=== PATIENT | male | born 1985 | race Caucasian/White ===

== ENCOUNTER 2024-07-16 04:04 | Day surgery (SDC) | payer OTHER ==
[2024-07-16] VITALS (224 sets, daily range): BP systolic 82–126; BP diastolic 51–105
[~2024-07-16] VITALS: Ht 172.7 cm; Wt 72.7 kg
--- NOTE | 2024-07-16 07:00 | NUR ---
Patient arrived to the ANR suite, identification and demographics confirmed. Patient to room 9, AAO, ambulatory, vitals obtained, ID/allergy/fall bands placed, changed into hospital gown, BRITTANY hose, and non-slip socks. Procedure and timeline explained for treatment and discharge. All questions answered and the patient presents no concerns at this time.
[2024-07-16] MEDS ORDERED: SCOPOLAMINE 1.5 MG DIS TD PRN (07:30)
[2024-07-16] MEDS ORDERED: FAMOTIDINE 20 MG/TAB PO PRN (07:30)
[2024-07-16] MEDS ORDERED: cloNIDine HCL 0.1 MG/TAB PO PRN (07:30)
[2024-07-16] MEDS ORDERED: PANTOPRAZOLE SODIUM Sesquihydr 40 MG/TAB PO PRN (07:30)
[2024-07-16] MEDS ORDERED: ALBUTEROL SULFATE 2.5 MG VIAL IN PRN (07:30)
[2024-07-16] MEDS ORDERED: diazePAM 5 MG/TAB PO PRN ×2 (07:30→08:30)
[2024-07-16] MEDS ORDERED: CYANOCOBALAMIN 500 MCG/TAB ( B12) PO PRN (07:30)
[2024-07-16] MEDS ORDERED: LACTATED RINGER'S 1,000 ML IV PRN ×3 (07:30→19:00)
--- NOTE | 2024-07-16 07:41 | NUR ---
Dr. Gomez telephoned with patient intake information including usage, dose, last dose/time taken and initial vital signs. Patient history and allergies reviewed with MD. Orders received for 10 mg PO Valium and 0.1 mg PO Clonidine now. Will reassess per protocol in 1.5 hours and update MD with assessment and vitals.
--- NOTE | 2024-07-16 07:58 | NUR ---
NOT ABLE TO OBTAIN IV SITE AT THIS TIME DUE TO PAST IV DRUG USE. NOTIFIED DR. GOMEZ AT THIS TIME AND CONSENT OBTAINED FOR CENTRAL LINE PLACEMENT.
[2024-07-16] MEDS ORDERED: ASCORBIC ACID 4,000 MG in SODIUM CHLORIDE 0.9% 1,000 ML IV SCH (08:00)
[2024-07-16 09:06] LABS: BASO% 0.6 % (0-3); EOS% 1.6 % (0-8); HEMATOCRIT 42.5 % (39.0-50.0); HEMOGLOBIN 13.2 g/dl (14.0-18.0); LYMPH% 40.6 % (15-41); MEAN CELL VOLUME 93.6 fL CALC (80.0-100.0); MEAN CORPUSCULAR HGB 29.1 pG CALC (26.0-32.0); MEAN CORPUSCULAR HGB CONC 31.1 g/dL CAL (32.0-36.0); MONO% 7.2 % (2-13); NEUT# 2.49 thou/uL (1.82-7.42); RED BLOOD COUNT 4.54 mill/uL (4.70-6.10); RED CELL DISTRI WIDTH 11.9 % (11.5-15.5)
[2024-07-16 09:24] LABS: ALBUMIN 4.1 g/dL (3.2-5.0); BILIRUBIN, TOTAL 0.4 mg/dL (0.2-1.3); CREATININE 0.7 mg/dL (0.7-1.3); POTASSIUM 4.5 mmol/l (3.5-5.1); TOTAL PROTEIN 7.3 g/dL (6.3-8.2)
[2024-07-16] MEDS ORDERED: ONDANSETRON HCl 4 MG/2 ML SDV IV PRN ×3 (09:35→19:00)
[2024-07-16] MEDS ORDERED: LIDOCAINE HCL 1% (10MG/ML) 100 MG/10 ML MDV IV PRN (09:35)
[2024-07-16] MEDS ORDERED: cloNIDine HYDROCHLORIDE 100 MCG/ML 10 ML INJ IV PRN (09:35)
[2024-07-16] MEDS ORDERED: POTASSIUM CHLORIDE 10 MEQ/50 ML BAG IV PRN (09:35)
[2024-07-16] MEDS ORDERED: MIDAZOLAM HCL 2 MG/2 ML VIAL IV PRN (09:35)
[2024-07-16] MEDS ORDERED: diazePAM 5 MG/TAB VT PRN (09:35)
[2024-07-16] MEDS ORDERED: STERILE WATER FOR IRRIGATION 1,000 ML BTL IR PRN (09:35)
[2024-07-16] MEDS ORDERED: ROCURONIUM BROMIDE 10 MG/ML 5ML VIAL IV PRN (09:35)
[2024-07-16] MEDS ORDERED: SUCCINYLCHOLINE CHLORIDE 20 MG/ML 10ML VIAL IV PRN (09:35)
[2024-07-16] MEDS ORDERED: LIDOCAINE HCL 1% (10MG/ML) 100 MG/10 ML MDV VT PRN ×2 (09:35)
[2024-07-16] MEDS ORDERED: OCTREOTIDE ACETATE 100 MCG/VIAL SDV SC PRN (09:35)
[2024-07-16] MEDS ORDERED: PROPOFOL 100 ML IV PRN (09:35)
[2024-07-16] MEDS ORDERED: DEXAMETHASONE SODIUM PHOSPHATE PF 10 MG/ML SDV IV PRN ×2 (09:35→19:00)
[2024-07-16] MEDS ORDERED: THIAMINE HCL 100 MG/ML 2ML VIAL IV PRN (09:35)
[2024-07-16] MEDS ORDERED: cloNIDine HCL 0.1 MG/TAB VT PRN (09:35)
[2024-07-16] MEDS ORDERED: MAGNESIUM SULFATE HEPTAHYDRATE 100 ML IV PRN (09:35)
[2024-07-16] MEDS ORDERED: NALTREXONE HCL 50 MG/TAB VT PRN (09:35)
[2024-07-16] MEDS ORDERED: PROPOFOL 10 MG/ML 100ML VIAL IV PRN (09:35)
[2024-07-16] MEDS ORDERED: DiphenhydrAMINE HCL 50 MG/ML SDV IV PRN (09:35)
--- NOTE | 2024-07-16 10:20 | NUR ---
DR. GOMEZ AT BEDSIDE TO ASSESS PT AND DISCUSS POC AND PROCEDURE.
--- NOTE | 2024-07-16 10:26 | NUR ---
Induction Note Patient to ANR procedure room. Time out performed at 1026. Patient placed on monitors, Sav hugger, bilateral wrist restraints applied for ET tube protection. Versed 5mg given IV push at 1027. Lidocaine 100mg given at 1033 IV push followed by Rocoronium 10mg at 1034 IV push and held for 90 seconds. Propofol bolus of 120mg given at 1036 IV push. Succinylcholine 80mg given IV push at 1037. Smooth intubation with 7.5 ETT. Positive CO2. Positive Auscultation for air exchange. ET tube secured with tube gotti 22 at the lip. Patient placed on ventilator for spontaneous ventilation. Placed on Propofol IV drip at 1038. OG inserted. Positive air on auscultation. Positive gastric content. Stomach washed at this time.
--- NOTE | 2024-07-16 10:50 | NUR ---
OG close note Stomach washed at this time. Naltrexone 50 mg via OG tube. OG will be clamped for 45 minutes.
--- NOTE | 2024-07-16 11:35 | NUR ---
OG open note OG open at this time. Gastric content draining into drainage bag. OG to drain for 45 minutes. Propofol will be titrated down based on patient.
--- NOTE | 2024-07-16 12:20 | NUR ---
OG close note Stomach washed at this time. Naltrexone 50 mg with Clonidine 0.2 mg via OG tube. OG will be clamped for 45 minutes.
--- NOTE | 2024-07-16 13:50 | NUR ---
OG close note Stomach washed at this time. Naltrexone 50 mg with Clonidine 0.2 mg via OG tube. OG will be clamped for 45 minutes.
[2024-07-16] MEDS ORDERED: NALTREXONE50 MG PO (15:04)
[2024-07-16] MEDS ORDERED: CLONIDINE0.1 MG PO (15:04)
[2024-07-16] MEDS ORDERED: KLONOPIN2 MG PO (15:04)
--- NOTE | 2024-07-16 15:20 | NUR ---
No OG close at this time. Patient minimally reacting to treatment. Vitals, total Naltrexone & Clonidine, current Propofol infusion rate, treatment duration, and patient assessment discussed with Dr. Gomez. No orders for medication administration at this time. OG will remain open to allow time for patient to continue reacting to therapy.
--- NOTE | 2024-07-16 16:20 | NUR ---
OG close note Stomach washed at this time. Naltrexone 25 mg, Valium 10mg, and Clonidine 0.2 mg via OG tube. OG will be clamped for 20-30 minutes for closing dose.
[2024-07-16] MEDS ORDERED: Pantoprazole Sodium 40 MG VIAL (Protonix) IV SCH (16:30)
--- NOTE | 2024-07-16 16:40 | NUR ---
ALL PT PERSONAL BELONGINGS STORED IN LOCKER PURPLE #1 IN ANR DEPARTMENT.
--- NOTE | 2024-07-16 17:00 | NUR ---
Extubation note Closing medications given Benadryl 50mg IV push, Decadron 10mg IV push,Magnesium 4 grams IV, Zofran 8mg IV push, Octreotide 100mcg SC. Stomach washed out prior to extubation. Suctioned gastric content. OG removed. Patient extubated. Propofol Discontinued. Wrist restraints removed. Sav hugger Removed. See ANR Moderate sedate recovery record for further notes and assessment.
--- NOTE | 2024-07-16 17:20 | NUR ---
PHONE CALL PLACED TO PT MOTHER NIC. UPDATE PROVIDED AT THIS TIME. ALL QUESTIONS AND CONCERNS ADDRESSED.
--- NOTE | 2024-07-16 17:44 | NUR ---
patient arrived to ms bedside report given from rufus, kerri s.s of distress at this time; 2L of 02; breathing unlabored; vitals stable at this time; cecelia hugger applied to patient; personal item in ANR locker; iv site clean and intact running with LR @100; call light within reach, bed in lowest postion; safety measures in place; bed alarm activated at this time;
--- NOTE | 2024-07-16 17:44 | NUR ---
Patient to room 284 in no acute distress. Transfer of care to [facility], bedside report provided. 2L NC placed per orders, IVF to continue at 100ml/hr. VSS. Patient resting comfortably, no adventitious breath sounds appreciated. Bed alarm set. See chart/EMAR for procedural details and assessments. Handoff of care at the time of this note.
[2024-07-16] MEDS ORDERED: PROMETHAZINE HCL 25 MG in SODIUM CHLORIDE 0.9% 50 ML IV PRN (19:00)
[2024-07-16] MEDS ORDERED: KETOROLAC TROMETHAMINE 30 MG/ML SDV IV PRN (19:00)
[2024-07-16] MEDS ORDERED: LORazepam 2 MG/ML IV PRN ×2 (19:00)
[2024-07-16] MEDS ORDERED: PROMETHAZINE HCL 12.5 MG in SODIUM CHLORIDE 0.9% 50 ML IV PRN (19:00)
[2024-07-16] MEDS ORDERED: ACETAMINOPHEN 500 MG TAB PO PRN (19:00)
[2024-07-16] MEDS ORDERED: ACETAMINOPHEN 1,000 MG/100 ML VIAL IV PRN (19:00)
[2024-07-16] MEDS ORDERED: HALOPERIDOL LACTATE 5 MG/ML SDV IV PRN (19:00)
--- NOTE | 2024-07-16 19:34 | NUR ---
Patient was observed trying to get out bed. I went in and asked if he needed something and patient stated that he was about to go home. I then stated to him that he had just had the procedure and he stated that he had wasted his money because he was in pain and "they" told him that he wouldn't. Myself and the other cartographic drafter explained to him that what he was feeling is his body trying to regulate itself and get back to normal and throughout the night the nurse will give him meds to help with that. We also stated that we would let the nurse know how he was feeling to see if she could give him something. Nurse was notified.
--- NOTE | 2024-07-16 19:54 | NUR ---
UTILITY HAND INFORMED STOCKROOM KEEPER OF HOW PT WAS FEELING. PT C/O PAIN THROUGHOUT BODY AND EXPRESSING REGRET PERFORMING PROCEDURE STATING "I FEEL LIKE LUDIN BEEN UP FOR HOURS, I WAS TOLD I WOULD BE PUT TO SLEEP FOR ALL THIS" REMINDED PT THAT PROCEDURE IS COMPLETED AND HE IS NOW IN RECOVERY WHERE HIS BODY WILL REGULATE AND ENCOURAGED RELAXATION AND REST TO HELP RECOVERY. DID ADMINSITER MEDICATION PER EMAR DUE TO PT COMPLAINTS OF PAIN AND AGITATION. PT IS LAYING IN BED SUPINE, RM AIR, IVF RUNNING PER EMAR THROUGH RT FEMORAL LINE. VSS. NO S/S OF DISTRESS. BED ALARM ON AND SAFETY PRECAUTIONS IN PLACE.
--- NOTE | 2024-07-16 20:21 | NUR ---
RELAYED INFORMATION TO PT STATUS AND HOW HE IS FEELING. RECEIVED VERBAL ORDER AND FAXED TO PHARMACY AWAITING VERIFCATION. INFORMED PT OF PHYSICIANS ORDER AND PLAN OF CARE. PT CONTINUES TO HAVE SAME COMPLAINTS AT THIS TIME.
[2024-07-16] MEDS ORDERED: PATIENT' OWN MED CONTROLLED 1 EA DOSE IV PRN (21:00)
[2024-07-16] MEDS ORDERED: HALOPERIDOL LACTATE 5 MG/ML SDV IV SCH ×2 (21:30→23:40)
--- NOTE | 2024-07-16 22:57 | NUR ---
ADMINISTERED SCHEDULED MEDS PER EMAR. PT ASKED "HOW MUCH KLONOPIN" INFORMED OF SCHEDULED DOSE FO 2MG PER PHYSICIANS ORDER PT THEN STATED "THAT'S NOT GOING TO FUCKING DO NAYTHING" ASKED PT IF HE STILL WANTED TO TAKE IT, PT DID W/O DIFFICULTY. DENIES ANY N/V AT THIS TIME BUT CONTINUES TO COMPLAIN ABOUT LEGS AND HEAD STATING HE "CAN'T SLEEP" PT WAS ABLE TO SLEEP AFTER EARLIER DOSE OF HALDOL WAS ADMINSITERED. ENCOURAGED PT TO RELAX AND LET MEDICATION TAKE EFFECT. VSS. NO S/S OF DISTRESS. BED ALARM ON AND SAFETY PRECAUTIONS IN PLACE.
[2024-07-16] MEDS ORDERED: cloNIDine HCL 0.1 MG/TAB PO SCH (23:00)
[2024-07-16] MEDS ORDERED: clonazePAM 1 MG/TAB PO PRN (23:00)
--- NOTE | 2024-07-17 00:08 | NUR ---
PT PUNCHING THE BED RAILS AND KICKING THEM, WHEN TOLD TO STOP PT STATED "IM FUCKING DYING OVER HERE" WHEN INFORMED PT THEY ARE NOT DYING AND TO EXPLAIN WHAT IS WRONG PT C/O SAME CIRCUMSTANCE FORM EARLIER. ADMINISTERED MEDICATION PER EMAR TO HELP PT RELAX AND GET SLEEP. BED ALARM ON AND SAFETY PRECAUTIONS IN PLACE.
--- NOTE | 2024-07-17 00:54 | NUR ---
PT STILL C/O OF RESTLESS LEGS AND BECOMING VERY AGITATED, MAKING COMMENTS SUCH "I KNEW I SHOULDNT HAVE LISTEN TO YOU GUYS JUST LIKE EVERY OTHER FUCKING TIME" AND PT CONTINUES TO EXPRESS REGRET IN DECISION. NO THERAPUTIC COMMUNICATION OR EDUCATION PT WASNTS TO AWKNOWLEDGE AT THIS TIME. DID INFORM OF PT STATUS AND COMPLAINTS. TORB FOR NEW MEDICATIONS, FAXED TO PHARMACY AWAITING VERIFICATION.
[2024-07-17] MEDS ORDERED: MAGNESIUM SULFATE HEPTAHYDRATE 50 ML IV SCH (01:00)
[2024-07-17] MEDS ORDERED: diazePAM 10 MG/2 ML VIAL IV SCH (01:00)
[2024-07-17] MEDS ORDERED: clonazePAM 1 MG/TAB PO PRN ×2 (04:00→08:00)
[2024-07-17] MEDS ORDERED: cloNIDine HCL 0.1 MG/TAB PO PRN (04:00)
[2024-07-17] MEDS ORDERED: NALTREXONE HCL 50 MG/TAB PO SCH ×2 (04:00→09:30)
[2024-07-17 04:43] VITALS: BP 105/66
--- NOTE | 2024-07-17 04:55 | NUR ---
PT HAS BEEN ABLE TO GET A FEW HOURS OF SLEEP AFTER ADMINISTERING MEDICATIONS EARLIER PER EMAR FOR PAIN AND AGITATION. PT WAS AROUSABLE TO SPEECH BUT SOON WAKING UP BEGAN STATING "IS THERE ANYTHING YOU CAN GIVE ME, I HAVEN'T SLEPT AND IM STILL FEELING UNCOMFORTABLE" INFORMED PT THAT THEY HAD BEEN SLEEPING AND THAT MORNING SCHEDULED MEDS WILL BE ADMINSITERED NOW. PT DENIED ANY N/V AT THIS TIME. VSS. STAFF ASSISTED PT TO BATHROOM, AMBULATED WITH STEADY GAIT AND KEPT EYES OPEN. VOIDED BUT DID C/O PAIN WHEN URINATING. INFORMED FROM USE OF CATHETER DURING PROCEDURE AND PAIN WILL EVENTUALLY SUBSIDE. ASSISTED BACK INTO BED SUPINE. IVF RUNNING PER EMAR. NO S/S OF DISTRESS. BED ALARM ON AND SAFETY PRECAUTIONS IN PLACE.
--- NOTE | 2024-07-17 05:29 | NUR ---
PT BEGAN PUNCHING ON THE BEDRAILS AGAIN, SHAKING THEM. STAFF INSTRUCTED PT NOT TO DO THAT AND TRIED REDIRECTING. PT PRESENTS AGITATED AND ARGUEMENTATIVE, USING FOUL LANGUAGE TOWARDS CHIEF ESTIMATOR AND STAFF STATING "I HAVEN'T FUCKING SLEPT SINCE SHE GAVE ME THE PROPOFOL, LUDIN BEEN UP ALL NIGHT AFTER THE PROCEDURE" PT NOT INTERESTED IN ANY EDUCATION OR INFORMATION ON HOW PLAN OF CARE WENT, STATING "DONT ARGUE WITH ME, I KNOW LUDIN BEEN TAKING SHIT FOR A LONG TIME AND I KNOW WHAT I WAS GIVEN LAST" DID INFORM PT THAT HE WOULD NEED TO STOP PUNCHING THE BEDRAILS OR SECURITY WOULD BE CALLED DUE TO VIOLENT/DESTRUCTIVE BEHAVIOR.
--- NOTE | 2024-07-17 05:42 | NUR ---
DID HAVE TO DISCONNECT PT IVF AT THIS TIME DUE TO PT STARTING TO TOSS AND TURN IN BED
--- NOTE | 2024-07-17 06:12 | NUR ---
ADMINISTERED MEDICATION PER EMAR FOR PT INCREASED AGITATION
--- NOTE | 2024-07-17 06:45 | NUR ---
Rounded on pt with night nurse Erendira and day nurse Bettye. Pt restless and thrashing in the bed. Told FUEL CELL ENGINEER to "go fuck yourself". Night nurse reports pt has not rested well overnight and has been confrontational with staff. Able to ambulate with only stand by assistance.
[2024-07-17] MEDS ORDERED: ACETAMINOPHEN 325 MG/TAB PO SCH (08:00)
[2024-07-17] MEDS ORDERED: cloNIDine HCL 0.1 MG/TAB PO SCH ×2 (08:00→09:30)
[2024-07-17] MEDS ORDERED: PANTOPRAZOLE SODIUM Sesquihydr 40 MG/TAB PO SCH (08:00)
[2024-07-17] MEDS ORDERED: Cholecalciferol 2,000 UNIT/TAB PO PRN (09:00)
[2024-07-17] MEDS ORDERED: ACETAMINOPHEN 500 MG TAB PO PRN (09:00)
[2024-07-17] MEDS ORDERED: MAGNESIUM OXIDE 400 MG/TAB PO PRN (09:00)
[2024-07-17 09:41] VITALS: BP 110/68
--- NOTE | 2024-07-17 10:18 | NUR ---
labs came to get blood work; no complaints
[2024-07-17 10:24] LABS: BASO% 0.1 % (0-3); HEMATOCRIT 35.6 % (39.0-50.0); HEMOGLOBIN 11.9 g/dl (14.0-18.0); IMMATURE GRANULOCYTES 0.2 % (0.0-5.0); LYMPH% 12.2 % (15-41); MEAN CELL VOLUME 86.4 fL CALC (80.0-100.0); MEAN CORPUSCULAR HGB 28.9 pG CALC (26.0-32.0); MEAN CORPUSCULAR HGB CONC 33.4 g/dL CAL (32.0-36.0); MONO% 6.2 % (2-13); NEUT# 6.86 thou/uL (1.82-7.42); NEUT% 81.3 % (42-76); RED BLOOD COUNT 4.12 mill/uL (4.70-6.10)
[2024-07-17 10:47] LABS: ALBUMIN 4.1 g/dL (3.2-5.0); BILIRUBIN, TOTAL 0.5 mg/dL (0.2-1.3); CREATININE 0.7 mg/dL (0.7-1.3); MAGNESIUM 2.5 mg/dL (1.6-2.3); POTASSIUM 3.8 mmol/l (3.5-5.1)
--- NOTE | 2024-07-17 12:22 | NUR ---
PATIENT SLEEPING IN BED; ROOM AIR; BREATHING UNLABORED; NO S.S OF DISTRESS; CENTRAL LINE SALINE LOCKED AT THIS TIME; CALL LIGHT WITHIN REACH; MAGUE HUGGER IN PLACED; SAFTEY MEASURES IN PLACE
--- NOTE | 2024-07-17 15:15 | NUR ---
IV site discontinued, cath intact. No edema , no redness, voices no discomfort. Discharge instructions given. Patient verbalizes understanding of same. Discharged in stable condition via Ambulatory to Home with family. All belongings sent with pt.
--- NOTE | 2024-07-17 15:26 | NUR ---
Indu RN removed central line in right groin; no issues
[2024-07-17] MEDS ORDERED: KETOROLAC TROMETHAMINE 30 MG/ML SDV IV SCH (17:00)
[2024-07-17] MEDS ORDERED: LIDOCAINE HCL 1% (10MG/ML) 100 MG/10 ML MDV IV SCH (17:00)
[2024-07-17] MEDS ORDERED: ACETAMINOPHEN 1,000 MG/100 ML VIAL IV SCH (17:00)
== END 2024-07-17 15:42 | disposition home or self-care (01) | DRG 897 ==
LOC: ANR 04:04 → MS2 04:15 → ANR 07:00
PROVIDERS: ATTEND Anesthesiology
DX: F11.20 Opioid dependence, uncomplicated (principal)
CPT/HCPCS: J1100; J1200; J1630; J2060; J2354; J2405; J2470; J2704; J3360; J3411; J3475; J3490